=== PATIENT | female | born 1960 | race Two or more races ===

== ENCOUNTER 2017-08-09 14:25 | Emergency (ER) | payer BC ==
[2017-08-09 14:33] VITALS: BMI 31.3
[2017-08-09] MEDS ORDERED: ONDANSETRON 4 MG/2 ML VIAL IVPUSH ONE (14:42)
[2017-08-09] MEDS ORDERED: SODIUM CHLORIDE 1,000 ML IV STA (14:42)
[2017-08-09] MEDS ORDERED: ONDANSETRON 4 MG/2 ML VIAL ONE (14:46)
--- NOTE | 2017-08-09 14:54 | PDOC ---
History of Present Illness - General Chief Complaint: Lightheaded Stated Complaint: DIZZINESS Time Seen by Provider: 08/09/17 14:36 History Source: Patient Exam Limitations: No Limitations - History of Present Illness Initial Comments: 08/09/17 14:45 Patient is a 57F with history of HTN here today complaining of "dizziness". She states that when she moves from a sitting position to a standing position she feels like she is going to faint. She states that she has no dizziness at rest or with movement of her head. Denies chest pain, denies shortness of breath. Patient states that she's had multiple episodes of watery diarrhea without blood. She denies abdominal pain, recent antibiotic use. Denies fevers, chills, nausea, vomiting. Past History - Past Medical History Allergies/Adverse Reactions: Allergies Allergy/AdvReac Type Severity Reaction Status Date / Time tetracycline [Tetracycline] Allergy Verified 11/26/13 00:18 Home Medications: Ambulatory Orders Losartan/Hydrochlorothiazide [Losartan-Hctz 50-12.5 mg Tab] 1 each PO DAILY 12/30 COPD: No DVT: No Other medical history: denies - Immunization History Immunization Up to Date: Yes - Suicide/Smoking/Psychosocial Hx Smoking History: Never smoked Hx Alcohol Use: No Drug/Substance Use Hx: No Review of Systems - Review of Systems Comments:: 08/09/17 14:54 GENERAL/CONSTITUTIONAL: No fever or chills. +weakness. HEAD, EYES, EARS, NOSE AND THROAT: No change in vision. No sore throat. CARDIOVASCULAR: No chest pain or shortness of breath RESPIRATORY: No cough, wheezing, or hemoptysis. GASTROINTESTINAL: No nausea, vomiting, diarrhea or constipation. GENITOURINARY: No dysuria, frequency, or change in urination. MUSCULOSKELETAL: No joint or muscle swelling or pain. No neck or back pain. SKIN: No rash NEUROLOGIC: No headache, vertigo, loss of consciousness, or change in strength/ sensation. ENDOCRINE: No increased thirst. No abnormal weight change HEMATOLOGIC/LYMPHATIC: No anemia, easy bleeding, or history of blood clots. ALLERGIC/IMMUNOLOGIC: No hives or skin allergy. *Physical Exam - Vital Signs Last Vital Signs Temp Pulse Resp BP Pulse Ox 98.3 F 70 20 160/77 100 08/09/17 14:31 08/09/17 14:31 08/09/17 14:31 08/09/17 14:31 08/09/17 14:31 - Physical Exam Comments: 08/09/17 14:54 GENERAL: Awake, alert, and fully oriented, in no acute distress HEAD: No signs of trauma, normocephalic, atraumatic EYES: PERRLA, EOMI, sclera anicteric, conjunctiva clear ENT: Auricles normal inspection, hearing grossly normal, nares patent, oropharynx clear without exudates. Dry mucosa NECK: Normal ROM, supple, no lymphadenopathy, JVD, or masses LUNGS: No distress, speaks full sentences, clear to auscultation bilaterally HEART: Regular rate and rhythm, normal S1 and S2, no murmurs, rubs or gallops, peripheral pulses normal and equal bilaterally. ABDOMEN: Soft, nontender, normoactive bowel sounds. No guarding, no rebound. No masses EXTREMITIES: Normal inspection, Normal range of motion, no edema. No clubbing or cyanosis. NEUROLOGICAL: Cranial nerves II through XII grossly intact. Normal speech, no focal sensorimotor deficits SKIN: Warm, Dry, normal turgor, no rashes or lesions noted. ED Treatment Course - LABORATORY CBC & Chemistry Diagram: 08/09/17 14:56 08/09/17 14:56 - RADIOLOGY Radiology Studies Ordered: Category Date Time Status CHEST X-RAY PORTABLE* [RAD] Stat Radiology 08/09/17 14:42 Ordered Medical Decision Making - Medical Decision Making 08/09/17 14:55 Patient is 57F with history of HTN here today with near syncope. Vital signs stable and normal, will get orthostatics. Suspect patient is most likely dehydrated secondary to diarrhea, will evaluate for metabolic derangement, acs, arrhythmia, anemia. Will do EKG, CBC, CMP, CXR, mg, phos. Will treat with fluids and zofran. 08/09/17 15:53 Laboratory Tests 08/09/17 08/09/17 14:56 15:10 WBC 9.4 Hgb 13.5 Plt Count 283 Urine Nitrite Negative Ur Leukocyte Esterase Negative CBC normal, CMP reassuring, UA negative for infection. 08/09/17 15:53 CXR shows no acute pathology. EKG shows normal sinus rhythm with rate of 68. No st elevations/depressions. No significant t wave abnormalities. RBBB morphology, but no QRS widening. Normal intervals. 08/09/17 17:27 Patient reassessed, sitting up comfortably and walking normally. Will discharge with return precautions and pcp follow up. *DC/Admit/Observation/Transfer Diagnosis at time of Disposition: Near syncope - Discharge Dispostion Disposition: HOME Condition at time of disposition: Good Decision to Admit order: No - Referrals Referrals: Diana Castillo [Primary Care Provider] - - Patient Instructions Printed Discharge Instructions: DI for Syncope in Adults (Fainting) Additional Instructions: Please return if you have any new, worsening or concerning symptoms. Please follow up with your primary care physciian this week. - Post Discharge Activity
[2017-08-09 15:00] LABS: BASO % 0.7 % (0-2.0); EOS % 0.1 % (0-4.5); HEMATOCRIT 41.1 % (32.4-45.2); HEMOGLOBIN 13.5 GM/dL (10.7-15.3); MCH 27.5 pg (25.7-33.7); MCHC 32.9 g/dl (32.0-36.0); MEAN CELL VOLUME 83.4 fl (80-96); MEAN PLT VOLUME 8.3 fl (7.5-11.1); MONO % 4.1 % (3.8-10.2); NEUT % 82.1 % (42.8-82.8); PLATELET COUNT 283 K/MM3 (134-434); RBC 4.92 M/mm3 (3.60-5.2); RDW 13.7 % (11.6-15.6); WHITE BLOOD COUNT 9.4 K/mm3 (4.0-10.0)
[2017-08-09 15:25] LABS: INR 1.05 (0.82-1.09); PROTHROMBIN TIME (PATIENT) 11.9 SEC (9.7-13.0)
[2017-08-09 15:34] LABS: ALBUMIN 3.8 g/dl (3.4-5.0); ANION GAP 9 (8-16); BILIRUBIN,TOTAL 0.4 mg/dL (0.2-1.0); BLOOD UREA NITROGEN 13 mg/dL (7-18); CALCIUM 8.4 mg/dL (8.5-10.1); CHLORIDE 98 mmol/L (98-107); CO2 27 mmol/L (21-32); CREATININE 0.5 mg/dL (0.55-1.02); GLUCOSE,RANDOM 130 mg/dL (74-106); MAGNESIUM 1.6 mg/dL (1.8-2.4); POTASSIUM 3.4 mmol/L (3.5-5.1); SGOT/AST 25 U/L (15-37); SGPT/ALT 83 U/L (12-78); SODIUM 134 mmol/L (136-145); TOT PROT 7.1 g/dl (6.4-8.2)
[2017-08-09 15:36] LABS: URINE APPEARANCE CLEAR; URINE BILIRUBIN NEGATIVE (<2.0 mg/dL); URINE COLOR COLORLESS; URINE GLUCOSE (UA) NEGATIVE (NEGATIVE); URINE KETONE NEGATIVE (NEGATIVE); URINE LEUK ESTERASE NEGATIVE (NEGATIVE); URINE NITRITE NEGATIVE (NEGATIVE); URINE PROTEIN NEGATIVE (NEGATIVE); URINE UROBILINOGEN NEGATIVE mg/dL (0.2-1.0)
[2017-08-09 15:37] LABS: ALK PHOS 110 U/L (45-117)
--- NOTE | 2017-08-09 15:39 | PDOC ---
Attending Attestation - Resident Resident Name: RonnyBenson conley - ED Attending Attestation I have performed the following: I have examined & evaluated the patient, The case was reviewed & discussed with the resident, I agree w/resident's findings & plan, Exceptions are as noted - HPI HPI: 08/09/17 15:39 "Patient is a 57 F, with PMHx of HTN, who presents to the ED for lightheadedness. Pt states that her symptoms began today. She describes feeling woozy, as if she is going to faint, but she has not lost consciousness. Pt denies CP/SOB/palpitations. Denies F/C. Denies room-spinning sensation. She states that she does not "feel herself" but cannot describe the sensation she is having. Pt denies GRANT. Denies N/V/D/abdominal pain. Denies weakness/numbness in any extremity. Denies unsteadiness while walking. " - Physicial Exam PE: 08/09/17 15:41 "GENERAL: Awake, alert, and fully oriented, in no acute distress. HEAD: No signs of trauma EYES: PERRLA, EOMI, sclera anicteric, conjunctiva clear ENT: Auricles normal inspection, hearing grossly normal, nares patent, oropharynx clear without exudates. Moist mucosa NECK: Nontender, no stepoffs, Normal ROM, supple, no lymphadenopathy, JVD, or masses LUNGS: Breath sounds equal, clear to auscultation bilaterally. No wheezes, and no crackles HEART: Regular rate and rhythm, normal S1 and S2, no murmurs, rubs or gallops ABDOMEN: Soft, nontender, normoactive bowel sounds. No guarding, no rebound. No masses EXTREMITIES: Normal range of motion, no edema. No clubbing or cyanosis. No cords, erythema, or tenderness NEUROLOGICAL: Cranial nerves II through XII intact. 5/5 strength and sensation in all extremities, Normal speech, normal gait, normal cerebellar function SKIN: Warm, Dry, normal turgor, no rashes or lesions noted. " - Medical Decision Making 08/09/17 15:41 57 F with lightheadedness x 1 day. Pt with no neuro deficits to suggest primary neuro process. No CP/SOB but will r/o ACS with trop and EKG. No fever but will evaluate for infectious process. - Labs, UA, CXR - IVF 08/09/17 16:23 Labs unremarkable Pt reassessed - now feels much better s/p IVF Pt ambulatory in ED with steady gait. Exam continues to be normal, non-focal neuro exam, clear lungs, benign abdomen. Pt is well appearing, with normal vitals. Clinically stable for DC at this time. I discussed the physical exam findings, ancillary test results and final diagnoses with the patient. I answered all of the patient's questions. The patient was satisfied with the care received and felt comfortable with the discharge plan and treatment plan. The patient agrees to follow up with the primary care physician within 24-72 hours.
[2017-08-09 15:55] LABS: EPI CELLS RARE /HPF (FEW)
[2017-08-09 18:08] VITALS: BP 155/65; PULSE 66; TEMP 98.2
--- NOTE | 2017-08-10 12:33 | EKG ---
Test Reason : Blood Pressure : / mmHG Vent. Rate : 068 BPM Atrial Rate : 068 BPM P-R Int : 186 ms QRS Dur : 108 ms QT Int : 432 ms P-R-T Axes : 021 -14 035 degrees QTc Int : 459 ms NORMAL SINUS RHYTHM INCOMPLETE RIGHT BUNDLE BRANCH BLOCK LEFT VENTRICULAR HYPERTROPHY WITH REPOLARIZATION ABNORMALITY ABNORMAL ECG NO PREVIOUS ECGS AVAILABLE Confirmed by BUBBA LOCKHART MD ([id number]) on 08/10/2017 12:33:22 PM Referred By: Confirmed By:BUBBA LOCKHART MD
== END 2017-08-09 18:07 | disposition home or self-care (01) ==
LOC: JER 14:25
PROC: 3E033GC Introduction of Other Therapeutic Substance into Peripheral Vein, Percutaneous Approach (ICD-10-PCS; principal; 2017-08-09)
DX: R55 Syncope and collapse (principal); I10 Essential (primary) hypertension
CPT/HCPCS: 36415; 71045-TC-FY; 80053; 81003; 81015; 82550; 83735; 84484; 85025; 85610; 87086; 93005; 93010; 99284-25; J7030